=== PATIENT | female | born 1945 | race Caucasian/White ===

== ENCOUNTER 2023-10-08 16:10 | Emergency (ER) | payer OTHER, MEDICARE ==
[~2023-10-08] VITALS: Ht 160 cm; Wt 34.8 kg
[2023-10-08 16:15] VITALS: TEMP 99.4
[2023-10-08 19:44] VITALS: BP 135/50; PULSE 75; RESP 18; O2SAT 97
== END 2023-10-08 19:30 | disposition home or self-care (01) ==
LOC: ER 16:11
DX: S90.02XA Contusion of left ankle, initial encounter (principal); S20.214A Contusion of middle front wall of thorax, initial encounter; V89.2XXA Person injured in unspecified motor-vehicle accident, traffic, initial encounter; Y93.89 Activity, other specified; Y92.89 Other specified places as the place of occurrence of the external cause; Y99.8 Other external cause status
CPT/HCPCS: 71045; 73610; 73630; 93005; 99284